=== PATIENT | female | born 1980 | race Caucasian/White ===

== ENCOUNTER 2023-07-21 19:43 | Emergency (ER) | payer BC, SELFPAY ==
[2023-07-21 19:45] VITALS: BP 109/81; BMI 22.1
--- NOTE | 2023-07-21 20:08 | ED.GENMED ---
History of Present Illness
General
Chief Complaint: Abdominal Symptoms
Time Seen by Provider: 07/21/23 20:08
Travel History
Have you had any contact with someone who has COVID-19?: No
Do you have any symptoms of coronavirus? Fever > 100 degrees, chills, cough, shortness of breath, sore throat, loss of taste or smell, muscle aches, or headache?: No
History of Present Illness
History of Present Illness:
HPI: Patient presents with nausea and vomiting that started about 9 hours ago associated with photophobia. She has a history of migraines. This feels like similar migraine however the symptoms started more abruptly than prior. She started
vomiting 'bile' and had some diffuse abdominal discomfort related to vomiting so she came in here for further evaluation.
EXAM:
GENERAL: The patient appears photophobic and appears to be in mild to moderate distress
HEENT: Moist oral mucosa
CARDIOVASCULAR: No murmurs, normal heart rate, regular rhythm, No chest wall tenderness
PULMONARY: No respiratory distress, breath sounds are clear and equal
ABDOMEN: Soft with no peritoneal signs, very mild diffuse abdominal tenderness
NEUROLOGIC: Excellent strength all extremities, no coordination deficits
PSYCHIATRIC: Appropriate mental status, normal insight and judgement
EXTREMITIES: Nontender, no edema, moves all extremities equally
SKIN: No rash, no lesions
TIME OF INITIAL ENCOUNTER: 8:15 PM
NUMBER AND COMPLEXITY OF PROBLEMS ADDRESSED AT THE ENCOUNTER
� Chronic conditions affecting care: Migraines, former smoker, has had colitis, alcohol abuse, anxiety/depression
� Acute Exacerbation and/or Progression of Chronic Illness: This is an acute problem
� Differential Diagnosis includes: Acute exacerbation of migraine, bowel obstruction unlikely, viral syndrome, anxiety
AMOUNT AND/OR COMPLEXITY OF DATA TO BE REVIEWED AND ANALYZED
� I performed an independent evaluation of and my interpretation is:
EKG:
CT:
X-rays:
Laboratory Studies: CBC normal, chemistries unremarkable including normal LFTs.
Other:
� Review of other/old records: The patient was admitted here last year related to alcoholism/overdose
� Clinical information was obtained by an independent historian: I spoke to her sons at bedside
� Prescriptions/Medications Considered but not given: Considered steroids/Depacon however the patient feels significantly improved without these meds
� Further testing considered but not performed: Considered CT imaging of the brain given the abrupt onset of symptoms however the patient feels dramatically improved with treatment for migraine. She also has a nonfocal
neurologic examination.
RISK OF COMPLICATIONS AND/OR MORBIDITY OR MORTALITY OF PATIENT MANAGEMENT
� Social determinants of health affecting care: Lives at home
� Discussion with other providers:
� Escalation of care including admission/observation vs risk of discharge considered: Suspect more of a migraine as the symptoms are associated with headache, photophobia, nausea and vomiting. The abdominal pain is diffuse and
occurred after all of the vomiting. Reglan with Benadryl along with Toradol and fluids have been tried. On reassessment at 9:30 PM, the patient feels markedly improved and is eager to go home. She has a nonfocal neurologic examination
Past History
Past History
ED Past Medical History: None and Psychiatric (Anxiety, depression)
ED Past Surgical History: Other (Breast augmentation, abdominoplasty)
Social History
Tobacco: Former smoker
Alcohol: Occasional
Personal:
Living: with family
Family History
Family History: Negative Early CAD
Phy Exam
Physical Exam
Physical Exam:
See HPI
Course
Orders/Labs/Results
Orders:
Orders
07/21/23 19:47
IV Insert/Care/Rem.- Treatment PRN
07/21/23 19:52
Complete Blood Count/With Diff Urgent
Comprehensive Metabolic Panel Urgent
HCG, Serum Qualitative Screen Urgent
Lipase Urgent
07/21/23 20:19
0.9% Sodium Chloride 1000 ml [Nss] 1,000 ml IV BOLUS
Diphenhydramine [Benadryl] 25 mg IV NOW STA
Ketorolac [Toradol] 15 mg IV NOW STA
Metoclopramide [Reglan] 10 mg IV NOW STA
07/21/23 20:21
Add On- LAB Urgent
Tests Added?: serum hcg screen
Abnormal Lab Results
07/21/23
19:52
RBC 3.78 L 10^6/uL
(4.20-5.40)
Hct 35.9 L %
(37.0-47.0)
MCH 33.6 H pg
(27.0-31.0)
Absolute Neuts (auto) 8.4 H 10^3/uL
(1.4-6.5)
Absolute Lymphs (auto) 1.1 L 10^3/uL
(1.2-3.4)
Neutrophils % 81.9 H %
(42.2-75.2)
Lymphocytes % 10.6 L %
(20.5-51.1)
Sodium 133 L mmol/L
(135-145)
BUN 21 H mg/dl
(7-17)
Glucose 68 L mg/dl
(70-99)
07/21/23 19:52
07/21/23 19:52
Vital Signs
Initial and Last Documented VS:
Initial Vital Signs
Temp Pulse Resp BP Pulse Ox
97.4 F 89 16 109/81 99
07/21/23 19:45 07/21/23 19:45 07/21/23 19:45 07/21/23 19:45 07/21/23 19:45
Last Documented Vital Signs
Temp Pulse Resp BP Pulse Ox
97.4 F 89 16 109/81 99
07/21/23 19:45 07/21/23 19:45 07/21/23 19:45 07/21/23 19:45 07/21/23 19:45
*Critical Care Note
Total Time (30-74mins, 75-104mins- exclusive of procedures): Not Applicable
ED Attending Note
-
Portions of this chart may have been created with voice recognition software.� Occasional wrong word or��sound alike� substitutions may have occurred due to the inherent limitations of voice recognition software.
Discharge Plan
Departure
Patient Disposition: Home (Routine Discharge)
Date of Disposition: 07/21/23
Time of Disposition: 21:32
Patient with high blood pressure during this ER visit?: Yes
Discharge Problem:
Migraine
Instructions: Migraines (DC), BLOOD PRESSURE
Prescriptions:
No Action
albuterol sulfate 1 PUFF HFA aerosol inhaler
2 puff inhalation R Q4HPRN PRN (Reason: cough) Qty: 1 0RF
benzonatate 100 MG capsule
100 mg PO TIDPRN PRN (Reason: cough) Qty: 30 0RF
folic acid 1 mg Tablet
1 mg PO DAILY Qty: 0 0RF
thiamine HCl (vitamin B1) 100 mg Tablet
100 mg PO BID Qty: 0 0RF
cephalexin 500 mg capsule
500 mg PO QID Qty: 20 0RF
Referrals:
Wallace Harris MD [Family Provider] -
Lula Humphries MD [Active] - Follow up in 2-3 days
Activity Restrictions/Additional Instructions:
Your basic blood work shows normal liver function. We gave you medicine that commonly helps exacerbations of migraine type headache�we gave you Reglan with Benadryl along with Toradol and IV fluids. Return here if worse. I recommend that you
follow with your primary care doctor however I have given you the contact information for local neurologist if needed as well.
Interventions
Interventions:
*Risk Screen - Suicide Last Done: 07/21/23 19:45
*Neglect/Abuse Screening Last Done: 07/21/23 19:45
ED- Fall Risk Assessment Last Done: 07/21/23 20:39
*ED COVID-19 Vaccine History Last Done: 07/21/23 19:45
EZ-Xyfehc-Ojtpivqwjo Assessment Last Done: 07/21/23 20:25
[2023-07-21] MEDS: BENADRYL 25 MG IV (20:29)
[2023-07-21] MEDS: TORADOL 15 MG IV (20:30)
[2023-07-21] MEDS: NSS 1000 IV (20:31)
[2023-07-21] MEDS: REGLAN 10 MG IV (20:31)
[2023-07-21 20:38] LABS: % Basophils 0.9 % (0-2); % Eosinophils 0.1 % (0-6); % Immature Granulocytes 0.4 % (0-0.5); % Lymphocytes 10.6 % (20.5-51.1); % Monocytes 6.1 % (1.7-9.3); % Neutrophils 81.9 % (42.2-75.2); Absolute Basophils 0.1 10^3/uL (0-0.2); Absolute Lymphocytes 1.1 10^3/uL (1.2-3.4); Absolute Monocytes 0.6 10^3/uL (0.1-0.6); Absolute Neutrophils 8.4 10^3/uL (1.4-6.5); Hematocrit 35.9 % (37.0-47.0); Hemoglobin 12.7 g/dL (12.0-16.0); Mean Corp Hgb Conc. 35.4 g/dL (33.0-37.0); Mean Corpuscular Hgb 33.6 pg (27.0-31.0); Mean Platelet Volume 8.9 fL (7.4-10.4); Nucleated Red Blood Cells % 0 %; Platelet Count 361 10^3/uL (130-400); Red Blood Cell Count 3.78 10^6/uL (4.20-5.40); Red Cell Dist. Width 12.2 % (11.5-14.5); White Blood Cell Count 10.3 10^3/uL (4.8-10.8)
[2023-07-21 20:49] LABS: HCG, Serum Qualitative Screen Negative
[2023-07-21 20:56] LABS: ALT (SGPT) 19 U/L (0-35); AST (SGOT) 29 U/L (14-36); Albumin 4.7 g/dl (3.5-5.0); Alkaline Phosphatase 74 U/L (38-126); Blood Urea Nitrogen 21 mg/dl (7-17); Calcium 9.6 mg/dl (8.4-10.2); Carbon Dioxide 22 mmol/L (22-30); Chloride 98 mmol/L (98-107); Estimated Creatinine Clearance 122 ml/min; Glucose 68 mg/dl (70-99); Potassium 3.7 mmol/L (3.5-5.1); Sodium 133 mmol/L (135-145); Total Bilirubin 1.1 mg/dl (0.2-1.3); Total Protein 7.4 g/dl (6.3-8.2); eGFR > 60.00
[2023-07-21 20:58] LABS: Lipase 132 U/L (23-300)
== END 2023-07-21 21:46 | disposition home or self-care (01) ==
LOC: EMR 19:43
PROVIDERS: Emergency Medicine; EMERGENCY PHYSICIAN Emergency Medicine; FAMILY PHYSICIAN Family Medicine
DX: G43.909 Migraine, unspecified, not intractable, without status migrainosus (principal); R11.2 Nausea with vomiting, unspecified; R10.9 Unspecified abdominal pain; R03.0 Elevated blood-pressure reading, without diagnosis of hypertension; K52.9 Noninfective gastroenteritis and colitis, unspecified; F41.9 Anxiety disorder, unspecified; F32.A Depression, unspecified; Z87.891 Personal history of nicotine dependence
CPT/HCPCS: 99284; 96374; 96375 ×2; 96361; 80053; 83690; 84703; 85025

== ENCOUNTER 2024-02-12 09:54 | Emergency (ER) | payer BC, SELFPAY ==
[2024-02-12 09:55] VITALS: BP 124/87
--- NOTE | 2024-02-12 10:10 | ED.GENMED ---
History of Present Illness
<KARMEN Key - Last Filed: 02/12/24 13:12>
General
Chief Complaint: Headache
Source: patient
Exam Limitations: none
Time Seen by Provider: 02/12/24 10:00
Nursing documentation reviewed up to this point in time: agreed with
History of Present Illness
History of Present Illness:
Patient is a 43-year-old female who presents to the ER for evaluation. Patient reports for the past several days since Wednesday she started with a right-sided headache. She does have a history of headaches but has never been evaluated for headaches.
She reports however her headaches are normally not just one-sided. She denies any nausea vomiting. She did have some right-sided neck pain with this and had her massage her neck yesterday however while he was massaging her neck she had an
episode of visual problems. She reports it looked like her had 5 eyes on his face. She did yesterday go to her chiropractor because of the neck pain who did an adjustment however she still has persistent right-sided headache. She has
not had any additional visual disturbances since yesterday.
Past History
<KARMEN Key - Last Filed: 02/12/24 13:12>
Past History
ED Past Medical History: None and Psychiatric (Anxiety, depression)
ED Past Surgical History: Other (Breast augmentation, abdominoplasty)
Social History
Tobacco: Former smoker
Alcohol: Occasional
Personal:
Living: with family
Family History
Family History: Negative Early CAD
Review of Systems
<KARMEN Key - Last Filed: 02/12/24 13:12>
Review of Systems
Allergies reviewed?: Yes
All Other Systems: ROS reviewed and negative except as documented in HPI and ROS
Constitutional: Reports no symptoms; Denies fever, fatigue or chills
EENT: Reports other (pt had visual disturbance yesterday resolved no symptoms since )
Respiratory: Reports no symptoms
Cardiac: Reports no symptoms
ABD/GI: Reports no symptoms; Denies nausea or vomiting
: Reports no symptoms
Musculoskeletal: Reports no symptoms
Skin: Reports no symptoms
Neurological: Reports no symptoms
Phy Exam
<KARMEN Key - Last Filed: 02/12/24 13:12>
General Physical Exam
General Presentation: no apparent distress
General age: appears stated age
General Skin: warm and dry
General Habitus: normal
General Mental: alert
General Hydration: appears well hydrated
ENT Exam
ENT Exam: neck supple
Eye Exam
Eye Exam: PERRL and EOMI
Eye Exam General: PERRL: bilateral and EOM intact: bilateral
Pupil Exam: Bilateral: round and reactive
Neurological Exam
Neurological Exam: alert, oriented x3 and no sensory deficits
[place] Coma Scale
Eye Opening: Spontaneous
Verbal Response: Oriented
Motor Response: Obeys Commands
GCS Total Score: 15
Cerebellar
Cerebellar Function: normal finger to nose
Musculoskeletal Exam
Musculoskeletal Exam: other (Full range of motion to neck point tender to right lateral neck)
Skin Exam
Skin Exam: normal color and warm/dry
Psychiatric Exam
Psychiatric Exam: normal mood/affect
Course
<KARMEN Key - Last Filed: 02/12/24 13:12>
Orders/Labs/Results
Orders:
Orders
02/12/24 10:16
CT Head & Neck Angio W/wo IV Urgent
Comment:
Reason For Exam: h/a/neck pain recent chiropractic manipulation
IV Insert/Care/Rem.- Treatment PRN
0.9% Sodium Chloride 1000 ml [Nss] 1,000 ml IV BOLUS
02/12/24 10:17
Test Result ONCE
02/12/24 10:50
Complete Blood Count/With Diff Urgent
Comprehensive Metabolic Panel Urgent
HCG, Serum Qualitative Screen Urgent
02/12/24 11:04
Diphenhydramine [Benadryl] 25 mg IV NOW STA
Metoclopramide [Reglan] 10 mg IV NOW STA
02/12/24 12:30
Ketorolac [Toradol] 15 mg IV NOW STA
Abnormal Lab Results
02/12/24
10:50
WBC 4.4 L 10^3/uL
(4.8-10.8)
RBC 3.61 L 10^6/uL
(4.20-5.40)
Hct 34.9 L %
(37.0-47.0)
MCH 33.5 H pg
(27.0-31.0)
Absolute Lymphs (auto) 1.0 L 10^3/uL
(1.2-3.4)
Monocytes % 9.8 H %
(1.7-9.3)
02/12/24 10:50
02/12/24 10:50
Vital Signs
Initial and Last Documented VS:
Initial Vital Signs
Temp Pulse Resp BP Pulse Ox
98.2 F 80 18 124/87 100
02/12/24 09:55 02/12/24 09:55 02/12/24 09:55 02/12/24 09:55 02/12/24 09:55
Last Documented Vital Signs
Temp Pulse Resp BP Pulse Ox
98.2 F 78 16 116/80 99
02/12/24 09:55 02/12/24 11:00 02/12/24 11:00 02/12/24 12:00 02/12/24 12:00
<Drew Mata, DO - Last Filed: 02/12/24 13:04>
Orders/Labs/Results
Orders:
Orders
02/12/24 10:16
CT Head & Neck Angio W/wo IV Urgent
Comment:
Reason For Exam: h/a/neck pain recent chiropractic manipulation
IV Insert/Care/Rem.- Treatment PRN
0.9% Sodium Chloride 1000 ml [Nss] 1,000 ml IV BOLUS
02/12/24 10:17
Test Result ONCE
02/12/24 10:50
Complete Blood Count/With Diff Urgent
Comprehensive Metabolic Panel Urgent
HCG, Serum Qualitative Screen Urgent
02/12/24 11:04
Diphenhydramine [Benadryl] 25 mg IV NOW STA
Metoclopramide [Reglan] 10 mg IV NOW STA
02/12/24 12:30
Ketorolac [Toradol] 15 mg IV NOW STA
Abnormal Lab Results
02/12/24
10:50
WBC 4.4 L 10^3/uL
(4.8-10.8)
RBC 3.61 L 10^6/uL
(4.20-5.40)
Hct 34.9 L %
(37.0-47.0)
MCH 33.5 H pg
(27.0-31.0)
Absolute Lymphs (auto) 1.0 L 10^3/uL
(1.2-3.4)
Monocytes % 9.8 H %
(1.7-9.3)
02/12/24 10:50
02/12/24 10:50
Vital Signs
Initial and Last Documented VS:
Initial Vital Signs
Temp Pulse Resp BP Pulse Ox
98.2 F 80 18 124/87 100
02/12/24 09:55 02/12/24 09:55 02/12/24 09:55 02/12/24 09:55 02/12/24 09:55
Last Documented Vital Signs
Temp Pulse Resp BP Pulse Ox
98.2 F 78 16 116/80 99
02/12/24 09:55 02/12/24 11:00 02/12/24 11:00 02/12/24 12:00 02/12/24 12:00
<KARMEN Key - Last Filed: 02/12/24 13:12>
MDM/Problems Addressed
Differential Diagnosis Includes:
Not limited to headache, migraine, complicated migraine, less likely carotid dissection
MDM/Problems Addressed:
Patient is a 43-year-old female who presented with right-sided headache for the past several days and did have an episode of visual disturbance yesterday. Visual disturbance resolved and patient has no further symptoms. Patient however continues
to complain of right-sided headache with right-sided neck pain. She does have a history of headache and never has had a headache on one side she presents awake alert no acute distress with a normal neurologic exam. She has gone to a chiropractor
for neck manipulation but this is after symptoms started patient did have a CTA of the head and neck which was negative for dissection negative for carotid/vertebral artery dissection. No recent fever chills no meningismus.
Patient was given fluids Zofran Reglan Toradol and oral Tylenol feeling better still mild headache again no further visual disturbance. Patient evaluated physician likely complicated migraine will DC the patient follow-up with family doctor as well
as neurology
<KARMEN Key - Last Filed: 02/12/24 13:12>
*Critical Care Note
Total Time (30-74mins, 75-104mins- exclusive of procedures): Not Applicable
ED Attending Note
<KARMEN Key - Last Filed: 02/12/24 13:12>
-
Portions of this chart may have been created with voice recognition software.� Occasional wrong word or��sound alike� substitutions may have occurred due to the inherent limitations of voice recognition software.
<Drew Mata DO - Last Filed: 02/12/24 13:04>
ED Attending Note
Patient seen and examined by attending physician: Yes
I performed the substantive portion of visit, reviewed & personally made and approve the management plan that is documented in note by myself or ISIDRO.: Yes
ED Attending Note:
Seen with nutrition examined independently. Assessment and plan 43-year-old female with some headache double vision, then had chiropractic regulation, feeling better after treatment, negative CT
Discharge Plan
Departure
Patient Disposition: Home (Routine Discharge)
Date of Disposition: 02/12/24
Time of Disposition: 13:08
Patient with high blood pressure during this ER visit?: No
Condition: Fair
Covid-19: Not Applicable
Discharge Problem:
Migraine
Instructions: Migraines (DC)
Prescriptions:
No Action
albuterol sulfate 1 PUFF HFA aerosol inhaler
2 puff inhalation R Q4HPRN PRN (Reason: cough) Qty: 1 0RF
benzonatate 100 MG capsule
100 mg PO TIDPRN PRN (Reason: cough) Qty: 30 0RF
folic acid 1 mg Tablet
1 mg PO DAILY Qty: 0 0RF
thiamine HCl (vitamin B1) 100 mg Tablet
100 mg PO BID Qty: 0 0RF
cephalexin 500 mg capsule
500 mg PO QID Qty: 20 0RF
Referrals:
Wallace Harris MD [Family Provider] -
Lula Humphries MD [Active] -
Activity Restrictions/Additional Instructions:
You may alternate between ibuprofen and Tylenol. Closely follow-up with family doctor as well as neurology please call Wednesday to make an appointment soon as possible. Return if any worsening of symptoms.
Interventions
Interventions:
*Risk Screen - Suicide Last Done: 02/12/24 09:55
*General Assessment Last Done: 02/12/24 09:55
*Neglect/Abuse Screening Last Done: 02/12/24 09:55
ED- Fall Risk Assessment Last Done: 02/12/24 11:42
*ED COVID-19 Vaccine History Last Done: 02/12/24 11:42
ED- Neurological Assessment Last Done: 02/12/24 11:00
Discharge Date and Time
Print Language: JAPANESE
[2024-02-12] MEDS: NSS 1000 IV (10:52)
[2024-02-12 11:00] VITALS: BP 124/74
[2024-02-12 11:01] LABS: % Basophils 1.1 % (0-2); % Eosinophils 3.2 % (0-6); % Immature Granulocytes 0.2 % (0-0.5); % Lymphocytes 23.1 % (20.5-51.1); % Monocytes 9.8 % (1.7-9.3); % Neutrophils 62.6 % (42.2-75.2); Absolute Basophils 0.1 10^3/uL (0-0.2); Absolute Eosinophils 0.1 10^3/uL (0-0.7); Absolute Monocytes 0.4 10^3/uL (0.1-0.6); Absolute Neutrophils 2.7 10^3/uL (1.4-6.5); Hematocrit 34.9 % (37.0-47.0); Hemoglobin 12.1 g/dL (12.0-16.0); Mean Corp Hgb Conc. 34.7 g/dL (33.0-37.0); Mean Corpuscular Hgb 33.5 pg (27.0-31.0); Mean Corpuscular Volume 96.7 fL (81.0-99.0); Mean Platelet Volume 8.8 fL (7.4-10.4); Nucleated Red Blood Cells % 0 %; Platelet Count 322 10^3/uL (130-400); Red Blood Cell Count 3.61 10^6/uL (4.20-5.40); Red Cell Dist. Width 12.3 % (11.5-14.5); White Blood Cell Count 4.4 10^3/uL (4.8-10.8)
[2024-02-12] MEDS: REGLAN 10 MG IV (11:07)
[2024-02-12] MEDS: BENADRYL 25 MG IV (11:07)
[2024-02-12 11:12] LABS: HCG, Serum Qualitative Screen Negative
[2024-02-12 11:14] LABS: ALT (SGPT) 20 U/L (0-35); AST (SGOT) 24 U/L (14-36); Albumin 4.3 g/dl (3.5-5.0); Alkaline Phosphatase 59 U/L (38-126); Blood Urea Nitrogen 15 mg/dl (7-17); Calcium 9.6 mg/dl (8.4-10.2); Carbon Dioxide 25 mmol/L (22-30); Chloride 103 mmol/L (98-107); Glucose 84 mg/dl (70-99); Sodium 139 mmol/L (135-145); Total Bilirubin 0.5 mg/dl (0.2-1.3); eGFR > 60.00
[2024-02-12 12:00] VITALS: BP 116/80
[2024-02-12] MEDS: TORADOL 15 MG IV (12:35)
[2024-02-12] MEDS: TYLENOL 1000 MG PO (13:25)
[2024-02-12 14:00] VITALS: BP 109/74
== END 2024-02-12 14:00 | disposition home or self-care (01) ==
LOC: EMR 09:54
PROVIDERS: Nurse Practitioner; EMERGENCY PHYSICIAN Emergency Medicine; FAMILY PHYSICIAN Family Medicine
DX: G43.909 Migraine, unspecified, not intractable, without status migrainosus (principal); Z87.891 Personal history of nicotine dependence
CPT/HCPCS: 99285; 96374; 96375 ×2; 96361; 70496; 70498; 80053; 84703; 85025; Q9967

== ENCOUNTER → 2024-06-28 09:40 | Outpatient (REF) | payer BC, SELFPAY | LOC: HWWDC 09:40 | PROVIDERS: ATTENDING PHYSICIAN Physician Assistant Medical; FAMILY PHYSICIAN Family Medicine; REFERRING PHYSICIAN Obstetrics & Gynecology | DX: N92.0 Excessive and frequent menstruation with regular cycle (principal); Z12.31 Encounter for screening mammogram for malignant neoplasm of breast | CPT/HCPCS: 76856; 77063; 77067 ==